=== PATIENT | female | born 1965 | race Caucasian/White ===

== ENCOUNTER 2017-04-07 00:30 | Emergency (ER) | payer OTHER ==
[2017-04-07 02:11] VITALS: BP 124/70
== END 2017-04-07 02:11 | disposition home or self-care (01) ==
LOC: ED 00:30
DX: S60.562A Insect bite (nonvenomous) of left hand, initial encounter (principal); S60.561A Insect bite (nonvenomous) of right hand, initial encounter; S80.862A Insect bite (nonvenomous), left lower leg, initial encounter; S80.861A Insect bite (nonvenomous), right lower leg, initial encounter; F17.210 Nicotine dependence, cigarettes, uncomplicated; Z71.6 Tobacco abuse counseling; Z59.0 Homelessness; W57.XXXA Bitten or stung by nonvenomous insect and other nonvenomous arthropods, initial encounter; Y93.89 Activity, other specified; Y99.8 Other external cause status; Y92.89 Other specified places as the place of occurrence of the external cause
CPT/HCPCS: 99406; J1200; J2930